=== PATIENT | male | born 1940 | race Caucasian/White ===

== ENCOUNTER 2016-04-29 10:39 | Inpatient (IN) | payer MEDICARE, BC ==
[~2016-04-29] VITALS: Ht 177.8 cm; Wt 84.5 kg
[~2016-04-29 10:39] MED LIST: ABILIFY5 MG PO; ANTABUSE250 MG PO; ASPI-COR81 M1 PO; ASPIRIN E.C. 8181 MG PO; Antabuse; Blood pressure med; CLONAZEPAM2 MG PO; COUMADIN2.5 MG PO; COUMADIN5 MG PO; DILTIAZEM; FLOMAX 0.40.4 MG/CAP PO; FLOMAX0.4 MG PO; HCTZ; KLONOPIN 0.5MG0.5 MG PO; MIRAPEX1 MG PO; MULTIPLE VITAMI1 CAP PO; NORVASC 5MG5 MG/TAB PO; PAROXETINE40 MG PO; POTASSIUM CH2 MEQ/ML PO; PRAVACHOL80 MG PO; PRINIVIL20 MG PO; ZESTRIL40 MG PO; ZOLPIDEM10 MG PO; [UNRECOGNIZED DRUG - OTHER]; [UNRECOGNIZED DRUG - OTHER]; [UNRECOGNIZED DRUG - OTHER] PO; cholesterol med
[2016-05-25] VITALS (10 sets, daily range): BP systolic 132–157; BP diastolic 45–78; PULSE 47–83; TEMP 97.5–98.5
[2016-05-25 07:40] LABS: HEMATOCRIT 44.3 % (42.0-52.0); HEMOGLOBIN 14.7 g/dl (13.5-18.0)
[2016-05-25 07:54] LABS: CALCIUM 9.5 mg/dL (8.4-10.2); CREATININE, serum 1.01 mg/dL (0.66-1.25); POTASSIUM 4.2 mmol/L (3.4-5.0)
[2016-05-25] MEDS ORDERED: FLOMAX 0.40.4 MG/CAP PO (07:56)
[2016-05-25] MEDS ORDERED: MYRBETR50MG PO (07:58)
[2016-05-25] MEDS ORDERED: MIRAPEX 1MG PO (07:58)
[2016-05-25] MEDS ORDERED: PAXIL40 MG PO (07:59)
[2016-05-26 00:39] VITALS: BP 133/64; PULSE 80; TEMP 97.2
[2016-05-26 05:09] VITALS: BP 136/54; PULSE 74; TEMP 98.6
[2016-05-26 07:38] LABS: HEMATOCRIT 35.7 % (42.0-52.0); HEMOGLOBIN 11.9 g/dl (13.5-18.0)
[2016-05-26 08:01] VITALS: BP 151/58; PULSE 66; TEMP 99.3
[2016-05-26 11:38] VITALS: BP 140/51; PULSE 63; TEMP 100
[2016-05-26 15:31] VITALS: BP 161/65; PULSE 75; TEMP 98.4
[2016-05-26 20:26] VITALS: BP 150/64; PULSE 83; TEMP 98.5
[2016-05-27 00:24] VITALS: BP 159/56; PULSE 80; TEMP 98
[2016-05-27 03:59] VITALS: BP 168/70; PULSE 67; TEMP 98.2
[2016-05-27 07:40] VITALS: BP 132/54; PULSE 71; TEMP 98.2
[2016-05-27 08:29] LABS: HEMATOCRIT 32.9 % (42.0-52.0)
[2016-05-27 12:12] VITALS: BP 107/49; PULSE 62; TEMP 98.3
[2016-05-27 15:33] VITALS: BP 135/63; PULSE 68; TEMP 98.9
[2016-05-27 19:47] VITALS: BP 158/61; PULSE 82; TEMP 99.1
[2016-05-28 01:08] VITALS: BP 123/63; PULSE 77; TEMP 98.6
[2016-05-28 04:22] VITALS: BP 112/39; BP 140/57; PULSE 56; PULSE 65; TEMP 98.5
[2016-05-28 07:37] VITALS: BP 113/54; PULSE 70; TEMP 98.3
[2016-05-28 07:40] VITALS: BP 112/61; PULSE 72; TEMP 98.9
[2016-05-28] MEDS ORDERED: NORCO 325 MG-7.1 TAB PO (07:50)
[2016-05-28] MEDS ORDERED: XARELTO10 MG PO (07:50)
[2016-05-28] MEDS ORDERED: ROXICODONE 55 MG/TAB PO (07:52)
[2016-05-28] MEDS ORDERED: SENOKOT8.6 MG PO (07:54)
== END 2016-05-28 10:11 | disposition home or self-care (01) | DRG 470 ==
LOC: JCC 05-25 07:00
PROVIDERS: Nurse Anesthetist, Certified Registered; Orthopaedic Surgery
PROC: 0SRB0JA Replacement of Left Hip Joint with Synthetic Substitute, Uncemented, Open Approach (ICD-10-PCS; principal; 2016-05-25 10:45)
DX: M16.12 Unilateral primary osteoarthritis, left hip (principal); I10 Essential (primary) hypertension; M06.9 Rheumatoid arthritis, unspecified; F17.210 Nicotine dependence, cigarettes, uncomplicated
CPT/HCPCS: A9284; C1776; J0690; J1650; J2250; J2274; J2704

== ENCOUNTER → 2016-05-20 | Outpatient (CLI) | payer MEDICARE, BC ==
[~2016-05-20] MED LIST changes: +MIRAPEX 1MG PO; +MYRBETR50MG PO; +NORCO 325 MG-7.1 TAB PO; +PAXIL40 MG PO; +ROXICODONE 55 MG/TAB PO; +SENOKOT8.6 MG PO; +XARELTO10 MG PO
== END ==
LOC: COL.LAB 11:33
DX: Z01.812 Encounter for preprocedural laboratory examination (principal); M25.852 Other specified joint disorders, left hip

== ENCOUNTER → 2016-12-14 | Outpatient (CLI) | payer MEDICARE, BC | LOC: BHSO 10:20 | DX: F41.1 Generalized anxiety disorder (principal) ==

== ENCOUNTER → 2017-01-26 | Outpatient (CLI) | payer MEDICARE, BC | LOC: BHSO 13:43 | DX: F33.1 Major depressive disorder, recurrent, moderate (principal) ==

== ENCOUNTER → 2017-05-03 | Outpatient (CLI) | payer MEDICARE, BC | LOC: BHSO 10:18 | DX: F33.1 Major depressive disorder, recurrent, moderate (principal) | CPT/HCPCS: G0463 ==

== ENCOUNTER 2017-08-12 17:31 | Observation (INO) | payer MEDICARE, BC ==
[~2017-08-12] VITALS: Ht 172.7 cm; Wt 88.4 kg
[2017-08-12 18:16] LABS: BASO % 0.5 % (0.0-2.0); EOS # 0.3 (0.0-0.7); GRAN # 5.4 (1.4-6.5); GRAN % 65.9 % (42.2-75.2); HEMATOCRIT 39.3 % (42.0-52.0); HEMOGLOBIN 13.2 g/dl (13.5-18.0); LYMPH # 1.9 (1.2-3.4); LYMPH % 22.9 % (20.0-51.0); MEAN CELL VOLUME 96 fl (80.0-100.0); MEAN CORPUSCULAR HEMOGLOBIN 32 pg (27.0-31.0); MEAN CORPUSCULAR HGB CONC 34 g/dl (33.0-37.0); MEAN PLATELET VOLUME 9.1 fl (7.4-10.4); MONO # 0.6 (0.1-0.6); MONO % 7.3 % (1.7-9.3); PLATELET COUNT 207 K/mm3 (130-400); RED BLOOD COUNT 4.08 M/mm3 (4.20-5.60); REDCELL DISTRIBUTION WIDTH-CV 12.9 % (11.5-14.5)
[2017-08-12 18:28] LABS: ALANINE AMINOTRANSFERASE 30 U/L (21-72); ALBUMIN 3.7 gm/dL (3.5-5.0); ALKALINE PHOSPHATASE 64 U/L (50-136); ANION GAP 13 mmol/L (7-16); AST,SGOT 25 U/L (15-37); BILIRUBIN,TOTAL 0.3 mg/dL (0.0-1.0); BLOOD UREA NITROGEN 22 mg/dL (9-20); CARBON DIOXIDE 23 mmol/L (22-30); CHLORIDE 108 mmol/L (98-107); CREATININE, serum 1.19 mg/dL (0.66-1.25); GLUCOSE 102 mg/dL (74-106); POTASSIUM 4.1 mmol/L (3.4-5.0); SODIUM 143 mmol/L (137-145); TOTAL PROTEIN 6.9 gm/dL (6.4-8.2)
[2017-08-12 18:30] LABS: C-REACTIVE PROTEIN < 0.5 mg/dL (0.0-0.9)
[2017-08-12 18:38] LABS: TROPONIN-I < 0.012 ng/mL (0.000-0.034)
[2017-08-12] MEDS ORDERED: LAMICTAL CD5 MG PO (19:14)
[2017-08-12] MEDS ORDERED: LEXAPRO20 MG PO (19:14)
[2017-08-12 21:12] VITALS: BP 174/77; PULSE 53; TEMP 98.2
[2017-08-12 23:53] VITALS: BP 144/72; PULSE 60; TEMP 98
[2017-08-13 03:58] VITALS: BP 155/69; PULSE 52; TEMP 97.8
[2017-08-13 07:11] LABS: BASO % 0.5 % (0.0-2.0); EOS # 0.4 (0.0-0.7); GRAN # 4.3 (1.4-6.5); GRAN % 58.5 % (42.2-75.2); HEMATOCRIT 40.3 % (42.0-52.0); HEMOGLOBIN 13.5 g/dl (13.5-18.0); LYMPH # 1.9 (1.2-3.4); MEAN CELL VOLUME 99 fl (80.0-100.0); MEAN CORPUSCULAR HEMOGLOBIN 33 pg (27.0-31.0); MEAN CORPUSCULAR HGB CONC 34 g/dl (33.0-37.0); MEAN PLATELET VOLUME 9.7 fl (7.4-10.4); MONO # 0.6 (0.1-0.6); MONO % 8.6 % (1.7-9.3); PLATELET COUNT 223 K/mm3 (130-400); RED BLOOD COUNT 4.09 M/mm3 (4.20-5.60)
[2017-08-13 07:32] LABS: ANION GAP 12 mmol/L (7-16); BLOOD UREA NITROGEN 21 mg/dL (9-20); CALCIUM 8.9 mg/dL (8.4-10.2); CARBON DIOXIDE 26 mmol/L (22-30); CHLORIDE 106 mmol/L (98-107); CREATININE, serum 1.15 mg/dL (0.66-1.25); GLUCOSE 79 mg/dL (74-106); POTASSIUM 4.2 mmol/L (3.4-5.0); SODIUM 144 mmol/L (137-145)
[2017-08-13 07:37] LABS: TROPONIN-I < 0.012 ng/mL (0.000-0.034)
[2017-08-13 08:47] VITALS: BP 150/78; PULSE 58; PULSE 85; TEMP 98.5
[2017-08-13 11:16] VITALS: BP 156/74; PULSE 50; TEMP 98.3
[2017-08-13] MEDS ORDERED: ELIQUIS 5MG PO ×3 (11:43→15:38)
[2017-08-16 11:04] LABS: LUPUS ANTICOAGULANT PT 11.5 sec (())
[2017-08-17 08:59] LABS: ANTI-THROMBIN III 111 % (72-128)
[2017-08-17 09:03] LABS: PROTEIN C ACTIVITY 108 % (70-150)
[2017-08-17 10:16] LABS: FACTOR II ACTIVITY 119 % (72-140); FACTOR V 121 % (50-150)
== END 2017-08-13 15:20 | disposition home or self-care (01) ==
LOC: COL.ER 17:31 → MEDICAL 19:29
PROVIDERS: Emergency Medicine; Nurse Practitioner Family
DX: R06.2 Wheezing (principal); I10 Essential (primary) hypertension; I08.3 Combined rheumatic disorders of mitral, aortic and tricuspid valves; E78.5 Hyperlipidemia, unspecified; G47.33 Obstructive sleep apnea (adult) (pediatric); N40.0 Benign prostatic hyperplasia without lower urinary tract symptoms; G25.81 Restless legs syndrome; F32.9 Major depressive disorder, single episode, unspecified; R91.1 Solitary pulmonary nodule; I73.9 Peripheral vascular disease, unspecified; Z79.01 Long term (current) use of anticoagulants; Z79.82 Long term (current) use of aspirin; Z96.652 Presence of left artificial knee joint; Z87.891 Personal history of nicotine dependence; Z86.711 Personal history of pulmonary embolism; Z82.3 Family history of stroke; Z82.49 Family history of ischemic heart disease and other diseases of the circulatory system
CPT/HCPCS: G0103; G0378; J1650; Q9967

== ENCOUNTER → 2017-11-01 | Outpatient (CLI) | payer MEDICARE, BC ==
[~2017-11-01] MED LIST changes: +ELIQUIS 5MG PO; +LAMICTAL CD5 MG PO; +LEXAPRO20 MG PO
== END ==
LOC: BHSO 13:01
DX: F33.41 Major depressive disorder, recurrent, in partial remission (principal)
CPT/HCPCS: G0463

== ENCOUNTER → 2018-01-07 | Day surgery (SDC) | payer MEDICARE, BC ==
[~2018-01-07] VITALS: Ht 175.3 cm; Wt 89.7 kg
[~2018-01-07] MED LIST changes: +LAMICTAL 100MG100 MG PO; -LAMICTAL CD5 MG PO; +NEURONTIN600 MG/TAB PO
[2018-01-07 09:38] VITALS: BP 155/76; PULSE 59; TEMP 97
[2018-01-07 11:10] VITALS: BP 136/68; PULSE 51; TEMP 97.8
[2018-01-07 11:25] VITALS: BP 133/73; PULSE 52
[2018-01-07 11:40] VITALS: BP 147/73; PULSE 47
== END ==
LOC: SDCO 08:37
DX: K57.30 Diverticulosis of large intestine without perforation or abscess without bleeding (principal); R19.7 Diarrhea, unspecified; K21.0 Gastro-esophageal reflux disease with esophagitis; K22.70 Barrett's esophagus without dysplasia; R14.3 Flatulence; Z79.82 Long term (current) use of aspirin; Z79.01 Long term (current) use of anticoagulants; Z86.718 Personal history of other venous thrombosis and embolism; Z86.711 Personal history of pulmonary embolism; Z87.891 Personal history of nicotine dependence
CPT/HCPCS: J2250; J3010; J7030

== ENCOUNTER → 2018-05-04 | Outpatient (CLI) | payer MEDICARE, BC | LOC: BHSO 13:04 | DX: F41.1 Generalized anxiety disorder (principal) | CPT/HCPCS: G0463 ==

== ENCOUNTER → 2018-10-25 | Outpatient (CLI) | payer MEDICARE, BC | LOC: BHSO 14:00 | DX: F33.42 Major depressive disorder, recurrent, in full remission (principal) | CPT/HCPCS: G0463 ==

== ENCOUNTER → 2018-11-07 | Outpatient (CLI) | payer MEDICARE, BC | LOC: COL.RAD 12:22 | DX: R91.1 Solitary pulmonary nodule (principal) | CPT/HCPCS: Q9967 ==

== ENCOUNTER 2018-12-22 15:10 | Emergency (ER) | payer MEDICARE, BC ==
[~2018-12-22] VITALS: Ht 172.7 cm; Wt 90.9 kg
[2018-12-22 15:11] VITALS: TEMP 98
[2018-12-22 15:27] LABS: BASO % 0.4 % (0.0-2.0); EOS # 0.1 (0.0-0.7); EOS % 1.4 % (0-4.0); GRAN # 5.5 (1.4-6.5); GRAN % 72.6 % (42.2-75.2); HEMATOCRIT 43.5 % (42.0-52.0); HEMOGLOBIN 14.5 g/dl (13.5-18.0); LYMPH # 1.4 (1.2-3.4); LYMPH % 18.5 % (20.0-51.0); MEAN CELL VOLUME 98 fl (80.0-100.0); MEAN CORPUSCULAR HEMOGLOBIN 33 pg (27.0-31.0); MEAN CORPUSCULAR HGB CONC 33 g/dl (33.0-37.0); MEAN PLATELET VOLUME 9.4 fl (7.4-10.4); MONO # 0.5 (0.1-0.6); MONO % 6.8 % (1.7-9.3); PLATELET COUNT 220 K/mm3 (130-400); RED BLOOD COUNT 4.44 M/mm3 (4.20-5.60); REDCELL DISTRIBUTION WIDTH-CV 13.2 % (11.5-14.5)
[2018-12-22 15:36] LABS: INR 1.1 (0.8-3.0); PROTHROMBIN TIME 12.4 SECONDS (9.7-12.8)
[2018-12-22 15:50] LABS: ALBUMIN 4.1 gm/dL (3.5-5.0); BILIRUBIN,TOTAL 0.6 mg/dL (0.0-1.0); CALCIUM 9.2 mg/dL (8.4-10.2); CREATININE, serum 1.15 (0.66-1.25); POTASSIUM 3.6 mmol/L (3.4-5.0); TOTAL PROTEIN 7.1 gm/dL (6.4-8.2)
[2018-12-22 20:17] VITALS: BP 166/80; PULSE 57
== END 2018-12-22 20:30 | disposition short-term general hospital (02) ==
LOC: COL.ER 15:10
PROVIDERS: Family Medicine
DX: I62.9 Nontraumatic intracranial hemorrhage, unspecified (principal); I10 Essential (primary) hypertension; E78.5 Hyperlipidemia, unspecified; N40.0 Benign prostatic hyperplasia without lower urinary tract symptoms; Z86.711 Personal history of pulmonary embolism
CPT/HCPCS: J2405

== ENCOUNTER → 2018-12-26 | Outpatient (CLI) | payer MEDICARE, BC ==
[2018-12-26 22:05] LABS: COLLECTION METHOD CATHETER
[2018-12-26 22:20] LABS: MUCOUS Present /lpf; PH 5 (5-8); SQUAMOUS EPITHELIAL None Seen /hpf; URINE APPEARANCE Clear; URINE BACTERIA None Seen /hpf; URINE BILIRUBIN Negative (NEGATIVE); URINE BLOOD 2+ (NEGATIVE); URINE COLOR Yellow; URINE GLUCOSE Negative (NEGATIVE); URINE KETONE 1+ (NEGATIVE); URINE LEUKOCYTE ESTERASE Negative (NEGATIVE); URINE NITRATE Negative (NEGATIVE); URINE PROTEIN(semi-quant) 1+ (NEGATIVE); URINE UROBILINOGEN Negative (NEGATIVE); URINE WBC 0-2 /hpf
== END ==
LOC: ZCOL.LAB 21:55
PROVIDERS: Internal Medicine
DX: R30.0 Dysuria (principal)

== ENCOUNTER 2019-01-09 10:23 | Inpatient (IN) | payer MEDICARE, BC ==
[~2019-01-09] VITALS: Ht 175.3 cm; Wt 87.8 kg
[~2019-01-09 10:23] MED LIST changes: -ASPIRIN 81M81 MG/TA2 PO; -DEBROX OT; -DULCOLAX S10 MG/SUPP RC; -IMODIUM 2MG CAPS2 MG PO; -LIPITOR 80MG80 MG PO; -LOMOTIL 0.025 M1 TAB PO; -MELATONIN5 M1 SL; -MILK OF MA400 MG/52 PO; -MYLANTA 150 ML150 M1 PO; -SINEMET 25/101 UDTAB PO; -TYLENOL 325MG325 MG PO; -TYLENOL SU650 MG/SUP RC; -[UNRECOGNIZED DRUG - OTHER] NS
[2019-01-09 10:33] VITALS: BP 116/64; PULSE 62; TEMP 98.1
--- NOTE | 2019-01-09 11:22 | NUR ---
Report from Ree nurse at [facility], pt arrived via wheelchair with sling to VI, at bedside, verified NKA, Full Code, and [facility]. Pt drowsy, closes eyes between questions. WAREHOUSE PROCESSOR took initial assessment, gave nurse pt's own phenylephrine HCl nasal spray. Pt [id number] lift transfer with 2 assist from wheelchair to shower chair.
[2019-01-09] MEDS ORDERED: TYLENOL SU650 MG/SUP RC (13:33)
[2019-01-09] MEDS ORDERED: ASPIRIN 81M81 MG/TA2 PO (13:34)
[2019-01-09] MEDS ORDERED: LIPITOR 80MG80 MG PO (13:35)
[2019-01-09] MEDS ORDERED: DULCOLAX S10 MG/SUPP RC (13:36)
[2019-01-09] MEDS ORDERED: DEBROX OT (13:38)
[2019-01-09] MEDS ORDERED: IMODIUM 2MG CAPS2 MG PO (13:44)
[2019-01-09] MEDS ORDERED: LOMOTIL 0.025 M1 TAB PO (14:30)
[2019-01-09] MEDS ORDERED: MELATONIN5 M1 SL (14:31)
[2019-01-09] MEDS ORDERED: MILK OF MA400 MG/52 PO (14:32)
[2019-01-09] MEDS ORDERED: MYLANTA 150 ML150 M1 PO (14:33)
[2019-01-09] MEDS ORDERED: [UNRECOGNIZED DRUG - OTHER] NS (14:45)
[2019-01-09] MEDS ORDERED: SINEMET 25/101 UDTAB PO (14:47)
[2019-01-09] MEDS ORDERED: TYLENOL 325MG325 MG PO (14:48)
[2019-01-09] MEDS ORDERED: LAMICTAL 100MG100 MG PO (15:02)
--- NOTE | 2019-01-09 18:04 | NUR ---
Left voicemail for Dr. Lorenzo that pt's lab results are displaying in computer now. WBC 13.2
[2019-01-09 18:19] VITALS: BP 166/71; PULSE 64; TEMP 98.1
--- NOTE | 2019-01-09 20:05 | NUR ---
Report to RAVEN Sylvester and that 5 page admission assessment and UA still need done.
--- NOTE | 2019-01-09 21:30 | NUR ---
Patient resting in bed and incontinent large amount of urine through clothing. Assisted to change and margot-care done. New attends applied. See admission assessment. Patient alert and oriented x 4 at this time and HS meds all reviewed and given taken 3 at a time. Declines HS care and snack. Attempts to void in urinal/obtain UA but unable to void at this time. BLE floated on pillow and SCD's on. Denies pain.
--- NOTE | 2019-01-10 02:00 | NUR ---
Patient attempts to use urinal after placed by staff several times but spills and attends changed. Denies pain. Repositioned up in bed.
[2019-01-10 03:42] VITALS: BP 157/76; PULSE 56; TEMP 98.7
--- NOTE | 2019-01-10 04:45 | NUR ---
Patient urinated in urinal after margot-care done. UA sent to lab. Incontinent large amount loose brown bm through pad and nurse changed/repositioned up in bed.
[2019-01-10 05:02] LABS: COLLECTION METHOD CLEAN CATCH
[2019-01-10 05:07] LABS: PH 6 (5-8); SQUAMOUS EPITHELIAL None Seen /hpf; URINE APPEARANCE Clear; URINE BACTERIA None Seen /hpf; URINE BILIRUBIN Negative (NEGATIVE); URINE BLOOD Negative (NEGATIVE); URINE COLOR Yellow; URINE GLUCOSE Negative (NEGATIVE); URINE KETONE Negative (NEGATIVE); URINE LEUKOCYTE ESTERASE Negative (NEGATIVE); URINE NITRATE Negative (NEGATIVE); URINE PROTEIN(semi-quant) Negative (NEGATIVE); URINE RBC 0-2 /hpf; URINE UROBILINOGEN Negative (NEGATIVE)
--- NOTE | 2019-01-10 06:26 | NUR ---
Assisted up to recliner via lift and 2 assist. Patient just dozed off and on through the night.
--- NOTE | 2019-01-10 08:24 | NUR ---
Patient resting in recliner at this time, call light in reach and chair alarm on. Patient has yellow gown on, slip proof socks on and tolerated breakfast, but did not like his meal today.
--- NOTE | 2019-01-10 11:30 | NUR ---
SW met with the patient to complete assessment on Rehab. Pt is alert & oriented. He is able to verbally communicate his needs & wants to others but is some times difficult to understand due to impaired speech. Pt lives w/ his , who he reports is in good health. They live in independent living at [facility]. Their home is 1 story home w/ no steps. They have 2 bathrooms but the one he uses has a walk-in shower w/ door, grab bars, & hand held shower head. The toilet is stand height. Pt reports walking w/o a device & was able to do his own ADL's. He also could help w/ the cooking, housekeeping, laundry, shopping, drove, medication management, & finance management. Pt also was delivering meals on wheels. Pt reports having r/walker & s/cane. Pt does not receive any services. They have a cat, which normally cares for. Pt's PCP is Dr. Gonzalez and he receives his medications at [facility], & reports no difficulties obtaining his meds. The pt reports having advanced directives w/ his , Yudelka, designated as DPOA. Will request copy from [facility]. Pt hopes to be able to return to home w/ his . Pt's goal is to get his right leg & arm working & regain his speech. Will continue to work w/ pt & for support during stay & on d/c planning.
[2019-01-10 15:40] VITALS: BP 151/65; PULSE 56; TEMP 98.4
--- NOTE | 2019-01-10 18:10 | NUR ---
Patient used call light and when this nurse arrived patient had a large incontinent stool outside of clothing and on his recliner. This nurse and FARZAD/Romie cleaned patient up, used [id number] to stand patient up and changed his clothing. He is currently resting in his recliner waiting for his supper to arrive. Will continue to monitor.
--- NOTE | 2019-01-10 18:50 | NUR ---
Patient assisted via lift to bed. Denies pain. BLE elevated on pillow. SCD's on.
--- NOTE | 2019-01-10 20:30 | NUR ---
Hs meds all reviewed and given. Patient repositioned up in bed. Declines CPAP at this time.
--- NOTE | 2019-01-10 23:00 | NUR ---
Rests with eyes closed. Respirations with ease.
--- NOTE | 2019-01-11 00:20 | NUR ---
Awake and incontinent of urine. Changed and barrier cream applied/repositioned up in bed. With encouragement, patient pulls self up in bed with LUE and headboard/pushing with LLE.
[2019-01-11 04:58] VITALS: BP 176/71; PULSE 61; TEMP 99
--- NOTE | 2019-01-11 05:00 | NUR ---
Awakened for repositioning/incontinent care done. Denies needs. Returns to resting with eyes closed.
--- NOTE | 2019-01-11 08:29 | NUR ---
Patient was dependent with all toileting cares and transfer this morning. He was incontinent of urine and stool. Stool was loose and was given prn imodium. Patient was a set up for brushing teeth. He placed toothpaste on tooth brush, brushed teeth and able to rinse mouth himself.
--- NOTE | 2019-01-11 17:11 | NUR ---
Reviewed Team Conference note w/ pt. He stated he understood & agreed w/ his current functional level. Informed him that the team did not set a d/c date but will re-evaluate next Wednesday, which he was fine w/. Pt had no questions/concerns at this time.
[2019-01-11 17:55] VITALS: BP 138/66; PULSE 56; TEMP 98.8
--- NOTE | 2019-01-11 20:54 | NUR ---
Patient did not have any more episodes of loose stools this shift. He denied pain. He still has some redness to his scrotom area and barrier ointment was applied. Patient attended all therapies this shift. He ate well this shift. This afternoon his Yudelka stopped by and was visiting when she approached this nurse stating that patient had a visitor at 1 PM today that had said that he was not going to get any better. He then said that later on another person came in and said that he was going to get better. said that patient was very upset and wanted to know who that person was that upset him. This nurse was assisting another patient at that time and said that she would visit with him about this when she is able to. This nurse later was then approached by patient's Yudelka with her reporting that patient changed his story and said that it wasn't that he wasn't going to get better, but rather someone visiting with him about therapies. She said that there was no concern after all. This nurse voiced understanding. Patient is alert to person, date of , year, but having difficulty with saying where he is or explaining himself due to dysphagia. Will continue to monitor.
--- NOTE | 2019-01-11 21:00 | NUR ---
PT RESTING IN BED. DENIES PAIN. RT SIDE FLACCID. ALITTLE CONFUSED AT TIMES. DENIES WANTS TV ON THEN PICKS UP REMOTE AND LOOKING FOR ON BUTTON. SOME APHASIA AND SL DYSARTHIA NOTED. INCONTINENT OF BLADDER. WEARING DIAPERS. SEE SHIFT ASSESSMENT. CALL LIGHT IN REACH. BED ALARM SET.
--- NOTE | 2019-01-12 05:27 | NUR ---
PT RESTING NOW. HAS HAD INTERMITTENT SLEEP THROUGH THE NIGHT. DENIES PAIN. WEARING DIAPERS FOR URINARY INCONTINENCE. CALL LIGHT IN REACH. BED ALARM SET.
--- NOTE | 2019-01-12 05:29 | NUR ---
PT HAS REFUSED CPAP THROUGH THE NIGHT.
[2019-01-12 05:52] VITALS: BP 178/81; PULSE 57; TEMP 98.3
--- NOTE | 2019-01-12 11:16 | NUR ---
Report from RAVEN Kaur. Pt was transferred to chair from [facility] [place] lift by ALEJANDRO, pt denies numbness/tingling or dizziness. Alert, takes pills a few at a time, right sided weakness, assisted with cutting up breakfast burrito. Pt in therapies. Denies pain.
--- NOTE | 2019-01-12 14:16 | NUR ---
Admission QIM scores were reviewed by the team. Code of 5 chosen for eating was determined by team discussion to be the most usual performance for this patient during the assessment period. Code of 3 chosen for oral hygiene was determined by team discussion to be the most usual performance for this patient during the assessment period.---Pastora Granado,
[2019-01-12 14:58] VITALS: BP 107/76; PULSE 89; TEMP 98.3
[2019-01-12 16:06] VITALS: BP 141/61; PULSE 57; TEMP 97.4
--- NOTE | 2019-01-12 16:33 | NUR ---
Pt's at bedside, she filled out menus for tomorrow. Pt denies pain, requests to transfer from bed to chair for supper.
--- NOTE | 2019-01-12 19:38 | NUR ---
Report to RAVEN Kaur.
--- NOTE | 2019-01-12 21:30 | NUR ---
PT UPSET. WANTS TO GO TO BED. SITTING UP IN W/C. USED SIT TO STAND LIFT WITH TWO STAFF TO TRANSFER TO BED. PT RELATED HAD CALLED EARLIER BUT NO ONE RESPONDED. HS CARES COMPLETED. DENIES NEED FOR PAIN MED. RT SIDE HEMIPARESIS. NOTED UPON ASSESSMENT AFTER PT INTO BED. RT SIDE ABD DISTENDED BUT SOFT. NO PAIN UPON PALPATION. BS X 4 QUAD. PT ATE ICE CREAM AND THEN BRUSHED TEETH. CALL LIGHT IN REACH. BED ALARM SET.
[2019-01-13 03:56] VITALS: BP 157/75; PULSE 56; TEMP 97.8
--- NOTE | 2019-01-13 08:28 | NUR ---
Report from RAVEN Kaur. Pt to chair in gown and gripper socks for breakfast, set up for oral cares, assisted with applying hearing aid to left side, pt did right. Glasses in place, took pills a few at a time with water. RUE on pillow, call lt in reach.
--- NOTE | 2019-01-13 11:52 | NUR ---
FARZAD Grubbs reports pt's margot area is WNL, desenex orders obtained per night nurse's report of redness to that area. Pt to chair for lunch, RUE on pillow, was napping and slightly confused when awakened, but took med with thin liquid. Glasses in place, yellow gripper socks on, call lt in reach.
[2019-01-13 16:13] VITALS: BP 125/74; PULSE 58; TEMP 97.6
--- NOTE | 2019-01-13 18:15 | NUR ---
Bed alarm on, RUE positioned on pillow, heels floated, SCDs, glasses, HAs in place, call lt in reach.
--- NOTE | 2019-01-13 19:38 | NUR ---
Report to RAVEN Zhao. Pt in bed with alarm on, call lt in reach, SCDs to BLE.
--- NOTE | 2019-01-14 02:41 | NUR ---
PATIENT DOING WELL TONIGHT. HAS HAD SEVERAL INCONTINENT VOIDS. AND WAS CLEANED AND REPOSITIONED AND TURNED. PATIENT DID REQUEST TO GET OUT OF BED FOR ONE VOID. USED SIT TO STAND WITH ASSISTANCE FROM SERVICES PROGRAM MANAGER AND GOT PATIENT INTO BATHROOM. PATIENT DID NOT HAVE A BM OR VOID. RETURNED TO BED VIA SIT TO STAND LIFT. PERICARE DONE. PATIENT REFUSED DESENEX POWDER, MINIMAL REDNESS NOTED. PATIENT DENIES PAIN. R ARM FLOATED ON PILLOW. SEE ASSESSMENT. NO FURTHER NEEDS AT THIS TIME.
[2019-01-14 04:28] VITALS: BP 157/64; PULSE 57; TEMP 98.2
--- NOTE | 2019-01-14 06:26 | NUR ---
BED ALARM WENT OFF. FOUND PATIENT ATTEMPTING TO GET OUT OF BED BY HIMSELF. PATIENT STATED 'HE NEEDED TO GO SEE MOM'. REORIENTED TO PLACE AND SITUATION. TRANSFERRED PATIENT TO CHAIR WITH X2 ASSIST AND SIT TO STAND LIFT. CHAIR ALARM ON. CALL LIGHT WITHIN REACH, DOOR OPEN.
--- NOTE | 2019-01-14 07:50 | NUR ---
Patient up in recliner resting. Alert and oriented to self. Attempted to reorient patient to place and time. X2 assist with sit to stand to restroom, had a large BM. Abrasion to knee is CDI. right sided weakness noted. Denies pain or further needs at this time.
--- NOTE | 2019-01-14 13:00 | NUR ---
PICKED UP PT FROM [facility] AT THIS TIME. PT HAS NOT HAD A [place] PAIN. SIT TO STAND IS USED TO TRANSFER PT. WEAKNESS TO RIGHT SIDE OF HIS BODY. PT VOIDS USING A URINAL, TOMASA YELLOW RUINE ABOUT 150 CC. URINE SAMPLE SENT TO LAB TODAY.
[2019-01-14 17:51] VITALS: BP 136/63; PULSE 58; TEMP 98.6
--- NOTE | 2019-01-15 01:39 | NUR ---
PATIENT DOING WELL TONIGHT. HAS BEEN SLIGHTLY CONFUSED BUT LESS THEN LAST NIGHT. HAS BEEN VOIDING IN URINAL, HAS NOT BEEN INCONTINENT. DENIES PAIN OR NEED FOR PAIN MEDICATIONS. NO FURTHER NEEDS AT THIS TIME WILL CONTINUE TO MONITOR.
[2019-01-15 03:51] VITALS: BP 160/62; PULSE 60; TEMP 98.2
--- NOTE | 2019-01-15 07:50 | NUR ---
Report from RAVEN Zhao. Pt sat up in bed for breakfast, alarm on, yellow gown/grippers/wristband in place. Set up for oral cares, VI iverson. Assist with inserting HAs. Glasses in place. Call lt in reach. Denies pain. Emptied urinal from tray.
--- NOTE | 2019-01-15 13:11 | NUR ---
Pt finished lunch in chair, RUE on pillow, visiting.
[2019-01-15 16:47] VITALS: BP 137/76; PULSE 57; TEMP 97.5
--- NOTE | 2019-01-15 19:08 | NUR ---
Pt ate supper in chair, returned to bed with lift, changed into yellow gown, grippers on, bed alarm on, call lt and urinal in reach, HAs in container- pt declined. RUE on pillow and folded pillow under RLE ankle as knee is not straightening well, pt says he is comfortable. Report to RAVEN Zhao.
--- NOTE | 2019-01-16 01:51 | NUR ---
PATIENT DOING WELL TONIGHT. DENIES PAIN. TOOK SCHEDULED MEDS WITHOUT ISSUE. WAS TRANSFERRED TO BATHROOM WITH SIT TO STAND TO ATTEMPT A BM. NO BM AT THIS TIME. 250 EMPTIED FROM URINAL. RETURNED TO BED. DRESSING TO R KNEE IS CDI. SEE ASSESSMENT. NO FURTHER NEEDS AT THIS TIME. WILL CONTINUE TO MONITOR.
[2019-01-16 03:45] VITALS: BP 150/82; PULSE 56; TEMP 98.2
--- NOTE | 2019-01-16 11:34 | NUR ---
Assessment completed, alert/oriented / he does have some disorientation in the mornings and evenings when he is drowsy, denies pain or discomfort, he was incontinent of large amount of stool this morning/ loose, will discuss getting an order for immodium as alfredo reports multiple loose stools over past couple of days, patient right arm and hand are contracted and RLE very weak, using sit to stand for transfers, ate good breakfast, he is using the urnial for voding, OT in room at this time with patient, we have him up in the recliner, denies other needs
--- NOTE | 2019-01-16 14:18 | NUR ---
Visited w/ pt. He stated he had a fairly good weekend but it was kind of bland because of not having much therapy or staff around. He did ask SW question about when he should be doing more w/ his leg & arm. Explained to him that it is hard to determine how he will progress w/ his stroke recovery as everyone is different. Pt stated he understood. Will continue to follow to provide support.
--- NOTE | 2019-01-16 21:15 | NUR ---
Pt. sitting up in chair at this time. Pt. is A&OX3, assessment complete. Pt. denies pain or other needs at this time. Call light within reach.
[2019-01-17 04:23] VITALS: BP 147/65; PULSE 64; TEMP 97.9
[2019-01-17 15:09] VITALS: BP 133/59; PULSE 59; TEMP 98.2
--- NOTE | 2019-01-17 16:42 | NUR ---
Patient resting in bed at this time, call light in reach and bed alarm is on. Denies pain this shift. came by today and cut patient's hair for him. Attended all therapies today. Was incontinent of urine this afternoon. He was total care with changing brief and dressing. Will continue to monitor.
--- NOTE | 2019-01-17 19:42 | NUR ---
Patient had multiple incontinent episodes this shift and staff cleaned and changed patient. He was a sit to stand with all transfers today. Denied pain this shift. Tolerated his diet well this shift. Denied questions at this time. Reported off to night nurse.
--- NOTE | 2019-01-17 20:30 | NUR ---
HS meds all reviewed and given. Urinal emptied and placed for the night to prevent incontinency. Has rash to buttucks and antifungal powder applied. Takes time to answer orientation questions but is oriented x 4. RLE elevated on pillow.
--- NOTE | 2019-01-18 01:32 | NUR ---
INCONTINENT LARGE LOOSE STOOL THROUGH PAD AND LINENS CHANGED. IMODIUM GIVEN AND STOOL SPECIMEN SENT TO LAB. DENIES PAIN OR NEEDS.
[2019-01-18 03:06] VITALS: BP 161/61; PULSE 58; TEMP 98.2
--- NOTE | 2019-01-18 03:47 | NUR ---
RESTS WITH EYES CLOSED. RESPIRATIONS WITH EASE.
--- NOTE | 2019-01-18 13:29 | NUR ---
Patient currently working with ST at this time. He is very tired and was given some sprite to help him wake up a bit for speech therapy. Dr. Maura ANDREWS'd patient's Zovirax today see DC orders. Patient's external catheter remains in place for patient and he is having good urine output. Wound vac continues to function well. Call placed to Medical Claims Analyst to get another canister for it. Patient was given a bed bath this morning, but will be getting a shower either tomorrow or Wednesday. Patient was a one assist with a walker with transfers this morning from bed to recliner. Given prn pain meds to help with generalized pain. Will continue to monitor.
--- NOTE | 2019-01-18 15:13 | NUR ---
Reviewed team conference note w/ pt & his , Demi. They stated they understood his current level of functioning. Informed them the team is recommending another week & re-evaluate next Wednesday, which they were fine with. Explained the team would like to schedule a Family Conference next 01/25/19, but will follow up next week on a time. They had no questions/concerns at this time.
[2019-01-18 15:54] VITALS: BP 128/63; PULSE 79; TEMP 97.5
--- NOTE | 2019-01-18 17:50 | NUR ---
Patient was a sit to stand with transferring to his recliner and back to his bed today. He had one episode of incontinence outside of his brief when standing in the sit to stand. Patient was aware at the specific moment that he needed to urinate, but was not able to give staff enough notice to prevent it from going on his socks and shoes. Patient was cleaned up throughly and shoes cleaned as well. Patient notified staff at least three times today when he thought he needed to urinate. Patient had a shower this afternoon and bandage to his right knee was removed. Following the shower the right knee abrasions seemed very red and a little angry. This nurse received orders from Dr. Lorenzo for a wound consult. Received orders from wound care - see additional nursing orders for dressing changes to right knee abrasions. The lateral abrasion was 3 1/2 cm x 2 cm oblong shape the inner bed was 2 cm x 1 1/4 cm oblong shape. The medial abrasion was 1 1/2 cm x 2 cm oblong shape. Both areas were covered with Aquacel AG and secured with Alleyvn bandage per wound care orders. Dressing is to be changed every 7 days or as needed if showering or drainage observed. Will continue to monitor.
--- NOTE | 2019-01-18 20:15 | NUR ---
HS meds all reviewed and given. Denies pain. Rests in bed and continent at this time. Lights turned out. BLE and RUE elevated on pillow.
--- NOTE | 2019-01-18 23:00 | NUR ---
Incontinent of urine through attends and max assist to change. Able to roll to right side without difficulty but max assist to roll to left. Head of bed lowered and patient able to pull self up in bed with use of head board.
--- NOTE | 2019-01-19 02:00 | NUR ---
Patient has been resting with eyes closed. Awakened and incontinent care done. Repositioned.
[2019-01-19 04:55] VITALS: BP 139/68; PULSE 70; TEMP 98.3
--- NOTE | 2019-01-19 05:24 | NUR ---
PATIENT AWAKENED FOR MED. STATES "YES" TO SLEEPING WELL THIS NOC.
--- NOTE | 2019-01-19 08:00 | NUR ---
SEE SHIFT ASSESSMENT.
[2019-01-19 18:23] VITALS: BP 140/62; PULSE 60; TEMP 98.5
--- NOTE | 2019-01-19 19:00 | NUR ---
REPORT GIVEN TO RAVEN SHERIDAN.
--- NOTE | 2019-01-20 01:46 | NUR ---
PATIENT DOING WELL TONIGHT. TOOK SCHEDULED MEDS WITHOUT DIFFICULTY. R ARM AND LEG ELEVATED ON PILLOW. PATIENT VOIDING IN URINAL. R KNEE DRESSING CDI. REQUESTED MELATONIN AT BEDTIME. NO FURTHER NEEDS AT THIS TIME. WILL CONTINUE TO MONITOR.
[2019-01-20 04:29] VITALS: BP 4133/68; PULSE 56; TEMP 98
[2019-01-20 07:07] LABS: BASO # 0.1 (0.0-0.2); BASO % 0.6 % (0.0-2.0); EOS # 0.4 (0.0-0.7); EOS % 4.5 % (0-4.0); GRAN # 5.7 (1.4-6.5); HEMATOCRIT 40.1 % (42.0-52.0); HEMOGLOBIN 13.4 g/dl (13.5-18.0); LYMPH # 1.7 (1.2-3.4); LYMPH % 19.5 % (20.0-51.0); MEAN CELL VOLUME 96 fl (80.0-100.0); MEAN CORPUSCULAR HEMOGLOBIN 32 pg (27.0-31.0); MEAN CORPUSCULAR HGB CONC 33 g/dl (33.0-37.0); MEAN PLATELET VOLUME 9.4 fl (7.4-10.4); MONO # 0.7 (0.1-0.6); MONO % 7.8 % (1.7-9.3); PLATELET COUNT 291 K/mm3 (130-400); RED BLOOD COUNT 4.16 M/mm3 (4.20-5.60); REDCELL DISTRIBUTION WIDTH-CV 12.7 % (11.5-14.5)
[2019-01-20 07:18] LABS: CALCIUM 9.2 mg/dL (8.4-10.2); CREATININE, serum 1.11 (0.66-1.25)
[2019-01-20 08:09] VITALS: BP 139/66
--- NOTE | 2019-01-20 10:44 | NUR ---
Visited w/ pt. Inquired if he had any questions about the Team Conference from Wednesday. He stated he did not. He did not have any other questions/concerns at this time.
[2019-01-20 17:42] VITALS: BP 137/66; PULSE 64; TEMP 98.3
--- NOTE | 2019-01-20 21:00 | NUR ---
PT RESTING IN BED. INCONT LG LOOSE STOOL W/ VOID. DENIES ANY PAIN. RT ARM CONTRACTURED UP TO CHEST THEN RELAXED STATE. PILLOW UNDER RT ARM FOR SHOULDER SUPPORT. CALL LIGHT IN REACH. BED ALARM SET.
--- NOTE | 2019-01-21 02:54 | NUR ---
PT SLEEPING. CPAP ON.
[2019-01-21 04:42] VITALS: BP 153/71; PULSE 55; TEMP 98
[2019-01-21 15:20] VITALS: BP 126/62; PULSE 56; TEMP 97.6
--- NOTE | 2019-01-21 16:27 | NUR ---
Report from RAVEN Kaur. Today is pt's birthday, transferred out of bed with sit to stand lift, sponge bath given, assisted to dress prior to group therapy. Scrotum reddened, cleansed, dried, applied lotromin powder after each change. Pt sat in wheelchair for group and to recliner through lunch, returned to bed, total assist to clean after incont of urine, changed into gown. and others visited, brought birthday card and brownies. Pt watching ball game on tv/bedresting, denies pain. Takes pills whole a few at a time with thin liquids. Tayler regular diet, set up assist for eating and oral cares. Informed that pt's hearing aid batteries need replaced, she states she will bring new ones. Dressing to Rt knee intact. Knees have tone and stiffness.
--- NOTE | 2019-01-21 17:10 | NUR ---
Pt to chair for supper via lift.
[2019-01-22 04:52] VITALS: BP 154/63; PULSE 54; TEMP 98.2
--- NOTE | 2019-01-22 07:53 | NUR ---
Report from RAVEN Kaur. Pt called with urge to have a BM, two assist with lift to BSC, no results, assisted with dressing and margot cares, was incont of urine in depends. To chair with set up for meal. Pt had choking episode on eggs and strauss, stayed with pt until he recovered. Cued on safety. Resumed eating. Denied pain.
--- NOTE | 2019-01-22 15:48 | NUR ---
Pt bedrested after breakfast, to chair for lunch, had incont BM in depends, total lift and total assist to clean and change. Seat cushion in place to recliner. Requested to return to bed.
[2019-01-22 15:59] VITALS: BP 139/67; PULSE 52; TEMP 97.8
--- NOTE | 2019-01-22 16:04 | NUR ---
Removed dressing dated 01/18@1700 from rt knee. Minimal drainage. Lateral scab has granulated more, dry, came off gentle cleansing motion with margot foam on wipe. Curlew granulation wound bed to this and medial smaller wound. Applied Aquacel Ag gauze and new allevyn dressing, dated. Pt beckie well.
--- NOTE | 2019-01-22 18:37 | NUR ---
Pt called to return to bed, agreeable to attempt to toilet on BSC, transferred with lift.
--- NOTE | 2019-01-22 21:30 | NUR ---
Report received from RAVEN Cunningham. Patient resting in bed. Patient denies pain. Assessment complete. PM medications given. Lungs CTA. Bowels active. Patient to be turned Q2. Bed alarm on. Call light within reach.
--- NOTE | 2019-01-23 01:42 | NUR ---
Patient resting in bed. Patient incontinent of urine, brief was changed during repositioning. Denies pain. Bed alarm on. Call light within reach.
[2019-01-23 05:32] VITALS: BP 135/69; PULSE 53; TEMP 97.8
--- NOTE | 2019-01-23 05:43 | NUR ---
Patient had uneventful night. Patient up to use BSC. Did not have a BM. Was then put in the chair for the morning. Brief changed. Patient watching TV at this time. Call light within reach. Chair alarm on.
--- NOTE | 2019-01-23 07:01 | NUR ---
Report given to RAVEN Maher
--- NOTE | 2019-01-23 07:37 | NUR ---
Patient resting in recliner at this time, call light in reach and chair alarm is on. Patient reported sleeping well last night. Ate 50% of breakfast this morning. Will continue to monitor.
--- NOTE | 2019-01-23 09:55 | NUR ---
Patient had an episode of possible aspiration when eating eggs this weekend. Patient's lungs sound clear. When observing him eating and drinking this morning he did cough more when drinking from cups that did not have a straw. Each time he drank his coffee and juice without a straw he would cough. Once he was given a straw he did not seem to cough. He did chew his food many times before swallowing. Encouraged him to continue to tuck his chin when swallowing. He voiced understanding. Discussed the above with ST this morning. Will continue to monitor.
--- NOTE | 2019-01-23 10:57 | NUR ---
SW met with the patient to discuss the weekend care. The patient reports it was good but he is tired. Patient was falling asleep during our visit. SW will continue to follow.
--- NOTE | 2019-01-23 13:28 | NUR ---
Patient's alarm went off and patient was found slid down in his recliner with right arm off the recliner arm rest. Patient stated, I was trying to reach the call light that had fallen." This nurse moved his recliner over closer to his bed and made sure that he could reach the call light on the side of the bed as well as wrap the call light around the side of the bed rail and placed in his lap. Patient was able to demonstrate how to pull his call light back up off the floor without leaning over to the floor to try to pick it up. He also demonstrated that he was able to reach over to the side of the bed and could push that call light if needed as well. Patient voiced understanding. Will continue to monitor.
--- NOTE | 2019-01-23 13:32 | NUR ---
Patient was a two person assist using [id number] when transferring to the toilet. He was incontinent of urine. Staff cleaned him up, changed his brief and pants and repositioned him into his recliner. Patient tolerated well. Reporting no pain at this time.
--- NOTE | 2019-01-23 16:03 | NUR ---
Patient's stopped by and brought him a book and a stand for his book. Patient currently resting in recliner, call light in reach and chair alarm set, shoes on. His took his clothes home to be washed. Denies pain at this time.
[2019-01-23 16:51] VITALS: BP 116/51; PULSE 61; TEMP 98.7
--- NOTE | 2019-01-23 22:20 | NUR ---
Awakened for HS meds all reviewed and given. Denies pain. Continent at this time.
[2019-01-24 02:59] VITALS: BP 148/64; PULSE 58; TEMP 98.3
--- NOTE | 2019-01-24 06:24 | NUR ---
UP TO BSC TO ATTEMPT BM-NO SUCCESS. INCONTINENT OF URINE AND CHANGED. SIT TO STAND LIFT TO RECLINER. DENIES PAIN.
--- NOTE | 2019-01-24 09:00 | NUR ---
Patient's called to find out when the family meeting time was for tomorrow. This nurse called TY and Melissa and the family meeting time is 10:15 AM tomorrow and this was communicated to patient's . She voiced understanding. Patient had a incontinent bowel movement this morning and was on his bedding and down his pants. It took this nurse more then a half hour to assist patient with cleaning up stool from patient and off clothing. Patient tolerated the sit to stand well with the length of time it took to clean him up. Patient in pleasent mood this morning. Denies pain. Will continue to monitor.
--- NOTE | 2019-01-24 09:15 | NUR ---
Patient had an incontinent BM today and took two people to clean patient. Patient was a sit to stand with his transfers. Denies pain.
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
--- NOTE | 2019-01-24 15:17 | NUR ---
Patient visiting with and friend Stanley from [facility]. Patient is drinking his nutrition drink while sitting in his recliner with feet elevated, call light in reach and chair alarm on. Patient denies questions or pain at this time.
--- NOTE | 2019-01-24 17:28 | NUR ---
Patient eating supper at this time. Denies pain. Will continue to monitor.
[2019-01-24 17:35] VITALS: BP 124/55; PULSE 63; TEMP 98.4
--- NOTE | 2019-01-24 19:22 | NUR ---
Dr. Lorenzo is aware of patient having a bulging right abdomen/flank. No new orders at this time. Patient has active bowel sounds in all quadrants. No pain reported.
--- NOTE | 2019-01-24 20:30 | NUR ---
Patient awakened for HS meds. Reviewed and given. Denies pain. Continent. Returns to resting with eyes closed.
--- NOTE | 2019-01-25 02:13 | NUR ---
Patient rests with eyes closed. Respirations with ease.
[2019-01-25 03:42] VITALS: BP 157/61; PULSE 53; TEMP 98.1
--- NOTE | 2019-01-25 05:42 | NUR ---
PATIENT AWAKENED FOR MED. STATES YES TO SLEPT WELL LAST NIGHT.
--- NOTE | 2019-01-25 06:30 | NUR ---
SHIFT REPORTED RECEIVED FROM YIFAN CARBAJAL.
[2019-01-25 07:08] LABS: CALCIUM 8.9 mg/dL (8.4-10.2); CREATININE, serum 1.09 (0.66-1.25); POTASSIUM 3.9 mmol/L (3.4-5.0)
--- NOTE | 2019-01-25 09:00 | NUR ---
INCONTINENT OF STOOL WITH PATIENT REQUESTING TO EAT BREAKFAST MEAL PRIOR TO INCONTINENT CARE GIVEN.
--- NOTE | 2019-01-25 13:33 | NUR ---
dimension mill worker attended rehab team meeting and then met with patient and spouse for a patient/family meeting. Speech, physical, and occupational therapies were in attendance at the meetings. Staff advised of current status and progress in each are of therapy and that we are looking at a discharge on February 02, 2019. It is recommended that patient transfer to a skilled facility upon discharge and patient/spouse both agree with this plan. Worker provided the Medicare.gov fdc compare options and spouse chose 1. [facility] and 2. [facility]. Choice form signed and placed in the chart. Worker provided referrals to above facilities and will await screenings/acceptance.
--- NOTE | 2019-01-25 14:51 | NUR ---
NO HAND RAILROAD SIGNAL TECHNICIAN OBSERVED ON COMMAND TO RIGHT HAND WITH SOME CONTRACTURES TO LAST 3 FINGERS OF RIGHT HAND
--- NOTE | 2019-01-25 15:16 | NUR ---
[facility] accepts patient to skilled care upon discharge on 02/02/19. Worker contacted spouse and advised of the above information.
--- NOTE | 2019-01-25 15:49 | NUR ---
rack production worker met with patient and provided written team conference notes and advised that [facility] will accept to skilled care on 02/02/19.
[2019-01-25 16:08] VITALS: BP 117/60; PULSE 52; TEMP 97.5
--- NOTE | 2019-01-25 16:51 | NUR ---
RESTING IN BED WITH NO COMPLAINTS AT THIS TIME. NO CHANGES IN MEDS/ACTIVITY/DIET ORDERS CURRENTLY
--- NOTE | 2019-01-25 17:01 | NUR ---
PATIENT FREQUENTLY PUSHES NURSE CALL BUTTON IN ATTEMPT TO CHANGE TV CHANNELS, WELL CALLING LABOR&DELIVERY NURSES STATIONS, REPEATEDLY INSTRUCTING PATIENT REGULATORY MANAGER LIGHT/TV CONTROL BUTTONS WITH PATIENT VERBALIZING UNDERSTANDING.
--- NOTE | 2019-01-25 17:42 | NUR ---
WILL GIVE BEDSIDE REPORT TO NIGHT NURSE WHO WILL RESUME CARE
--- NOTE | 2019-01-25 20:00 | NUR ---
PT RESTING IN BED. INCONT OF URINE IN CLOTHING. CHANGED CLOTHING WITH MAX ASSIST. RT SIDE FLACCID. PT ABLE TO CARRY SURFACE CONVERSATION WELL. COMPLEX TOPICS HAS SOME DIFFICULTY. CALL LIGHT IN REACH. BED ALARM SET.
[2019-01-26 04:32] VITALS: BP 134/60; PULSE 57; TEMP 98.4
--- NOTE | 2019-01-26 06:30 | NUR ---
RECEIVED SHIFT REPORT FROM BINDER OPERATOR NURSE ANGELIC
[2019-01-26 16:16] VITALS: BP 118/60; PULSE 58; TEMP 98
--- NOTE | 2019-01-26 17:59 | NUR ---
Pt was incont of urine at beginning of shift. A&O, pleasantly cooperative, takes pills a few at a time with thin liquids, aspiration precautions in place. visited this afternoon. Pt to chair for meals. Total lift for transfers. R knee wound healed over with pink granulation tissue, showed , she is pleased. Pt denies pain.
--- NOTE | 2019-01-27 01:33 | NUR ---
PATIENT DOING WELL TONIGHT. WAS INCONTINENT OF URINE AND CLEANED BY SUPERVISOR TRAIN OPERATIONS. DENIES PAIN OR NEED FOR PAIN MEDICATION. TOOK SCHEDULED MEDS A FEW AT A TIME WITHOUT DIFFICULTY. SCABBING TO R KNEE OPEN TO AIR AND HEALING. DENIES FURTHER NEEDS. WILL CONTINUE TO MONITOR.
[2019-01-27 03:57] VITALS: BP 162/62; PULSE 63; TEMP 98.3
--- NOTE | 2019-01-27 09:22 | NUR ---
Report from RAVEN Zhao. Total assist in lift for stool. Found 1 cm opening to margot anal area, superficial, red, pt has incont of B/B, will f/u with hospitaliast for orders. Pt coughing while taking pills with RN in training, she is cueing him appropriately for aspiration precautions.
--- NOTE | 2019-01-27 09:55 | NUR ---
Initial visit; Patient thanked Manager Corporate Strategy for stopping by and wishing him well and offering God's blessings.
[2019-01-27 15:46] VITALS: BP 112/49; PULSE 58; TEMP 98.2
--- NOTE | 2019-01-27 15:50 | NUR ---
Pt does not like Enlives, but agreeable to a "chocolate shake" (made with dana ice cream and enlive)
--- NOTE | 2019-01-27 16:26 | NUR ---
OBSERVED NEW OBSERVED 1CM SKIN CRACK TO PERIANAL AREA NONE DRAINING, PATIENT CONTINUES WITH INCONTINENCE OF BOTH BOWEL AND BLADDER. DR [facility]ILLO[facility] INFORMED OF SKIN ASSESSMENT CHANGE, ORDERS GIVEN FOR MEDICATED CREAM AND PRN ORDER FOR EXTERNAL CATHETER FOR COCCYX WOUND HEALING DUE TO CHRONIC INCONTINENCE
--- NOTE | 2019-01-27 19:35 | NUR ---
Awakened and HS meds all reviewed and given 1-2 at a time and takes without problems. Declines snack and HS care at this time. Denies pain.
--- NOTE | 2019-01-27 22:30 | NUR ---
Incontinent of urine and STICKER ON changes. Nurse will apply external cath once available.
--- NOTE | 2019-01-28 01:00 | NUR ---
Patient incontinent of urine and changed by LIVING NURSE. Cleansed margot-area with bath wipe then tip of penis cleansed with alcohol wipe, prep pad then external catheter placed without problems.
--- NOTE | 2019-01-28 02:47 | NUR ---
Patient rests with eyes closed. Respirations with ease.
[2019-01-28 04:38] VITALS: BP 160/68; PULSE 56; TEMP 97.9
--- NOTE | 2019-01-28 05:30 | NUR ---
PATIENT AWAKENED FOR MED. DENIES PAIN. REPOSITIONED. EXTERNAL CATH PATENT AND PATIENT CONTINENT OF URINE AT THIS TIME.
--- NOTE | 2019-01-28 11:06 | NUR ---
Patient is currently with group therapy at this time. When this nurse saw patient first thing this morning he had told this nurse that he had pulled his external catheter off. This nurse educated patient on the need to keep the catheter on to prevent any wetness to his coccyx wound area. Patient voiced understanding, but did not want it on when going downstairs for therapy this morning. This nurse left it off per patient request. Patient had an incontinent stool out of brief and onto his clothing, bed and blankets. Patient was cleaned up and assisted patient with putting his clothes on for the day. Patient was able to put one arm through his long sleeve shirt and to put it over his head, but staff assisted with everything else. Patient in pleasent mood this AM. Will continue to monitor.
--- NOTE | 2019-01-28 12:28 | NUR ---
Patient sleeping at this time, call light in reach and bed alarm is on. Patient wanted to sleep before eating his lunch. Lunch is currently being held until he wakes up.
--- NOTE | 2019-01-28 12:56 | NUR ---
Patient was a one assist with sit to stand to his bed by this nurse. Patient is currently dry at this time. He is watching TV, bed alarm is on and call light in reach.
[2019-01-28 17:05] VITALS: BP 125/65; PULSE 57; TEMP 97.6
--- NOTE | 2019-01-28 20:00 | NUR ---
HS meds all reviewed and taken 1-3 at a time. Does couph following swallowing of meds briefly. Denies pain. Continent and external cath reviewed and applied as directed and to dependent drainage. Patient repositions self up in bed after nurse lowers HOB. Refuses SCD's. RUE elevated on pillow and heels floated.
--- NOTE | 2019-01-28 22:51 | NUR ---
Patient rests with eyes closed. Respirations with ease.
--- NOTE | 2019-01-29 03:00 | NUR ---
Patient rests with eyes closed. Respirations with ease.
[2019-01-29 04:59] VITALS: BP 151/61; PULSE 57; TEMP 98.6
--- NOTE | 2019-01-29 10:10 | NUR ---
Patient was tearful and asked this nurse to help him call his . Following his conversation with his this nurse approached patient and he had red eyes. This nurse asked again if he needed any thing he said that he was okay. Will continue to monitor.
--- NOTE | 2019-01-29 14:13 | NUR ---
Patient has no other episodes of tearfulness today. He requested a shower so staff assisted him with this. Patient currently resting in his recliner sleeping, call light in reach, alarm on and legs elevated. Denies pain this shift.
--- NOTE | 2019-01-29 15:18 | NUR ---
Patient's is visiting at this time.
[2019-01-29 17:01] VITALS: BP 130/58; PULSE 55; TEMP 97.6
--- NOTE | 2019-01-29 19:25 | NUR ---
Pt. laying in bed at this time. Pt. is A&OX3, assessment complete. Pt. denies pain. Evening meds given per pt. request to have them now. Pt. denies further needs, call light within reach.
[2019-01-30 03:45] VITALS: BP 156/66; PULSE 56; TEMP 98.3
--- NOTE | 2019-01-30 08:15 | NUR ---
REPORT RECEIVED FROM NIGHT NURSE. PATIENT DENIES PAIN WHEN ASKED. RESTING IN BED WITH NO REQUESTS OR CONCERNS REPORTS.
--- NOTE | 2019-01-30 10:04 | NUR ---
Report from RAVEN Hebert. RAVEN Blount in training to provide total pt care today. Pt called for assist with hygiene, set up for oral cares on tray, now asked to shave, instructed pt that OT will assist, Alma aware. Pt denied pain. Bent coughing on some food this morning during breakfast.
[2019-01-30 16:48] VITALS: BP 137/64; PULSE 55; TEMP 98.2
--- NOTE | 2019-01-30 18:00 | NUR ---
PATIENT CONTINUES WITH USE OF LIFT WITH X2 STAFF ASSIST WITH BED TO CHAIR AND BACK TO BED FROM CHAIR TRANSFERS. DENIED NEED FOR PAIN MEDS WHEN ASKED THIS SHIFT. NO STOOLS OBSERVED NOR REPORTED BY STAFF. EXTERNAL CATHETER REMAINS INTACT THIS SHIFT, DRAINING CLEAR YELLOW URINE. PATIENT PERFORMING PASSIVE RANGE OF MOTION TO RIGHT HAND PER SELF. CONTINUES TO HAVE SPLIT SKIN WOUND TO COCCYX AREA, WITH APPLICATION OF DESITIN ORDERED. DENIES DIZZINESS OR NUMBNESS WHEN ASKED TO EXTREMITIES, REPORTS HAS SENSATION TO TOUCH TO RIGHT UPPER EXTREMITY.
--- NOTE | 2019-01-30 19:40 | NUR ---
Report received from RAVEN Blount.
[2019-01-31 05:28] VITALS: BP 157/60; PULSE 65; TEMP 98.3
--- NOTE | 2019-01-31 05:37 | NUR ---
Patient rested well throughout the night. External catheter present to assist with healing of coccyx wound. Repositioning completed by staff. Patient requested around 0515 that he get up for the day. Patient assisted by staff and sit to stand lift to the recliner. Patient denies any pain. Denies any further needs. Will continue to monitor.
--- NOTE | 2019-01-31 08:00 | NUR ---
RECEIVED FROM TELEPHONER NURSE. PATIENT UP IN CHAIR, EATING SET UP BREAKFAST TRAY WITH NO COMPLAINTS OR NEEDS CURRENTLY. DENIES COMPLAINTS OF PAIN WHEN ASKED. CONTINUES WITH RIGHT UPPER ARM WEAKNESS, REPORTS SENSATIONS WITHS TACTILE TOUCH TO RIGHT HANDS, DIANNA HAND SEAMLESS TUBE ROLLER UNEQUAL DUE ABSENT TRIAL CONSULTANT TO RIGHT HAND AND RIGHT LOWER LEG WEAKNESS. DENIES DIZZINESS OR NUMBNESS TO EXTREMITIES CURRENTLY.
--- NOTE | 2019-01-31 12:30 | NUR ---
PATIENT RESTING UP IN CHAIR WITH EYES CLOSED AFTER LUNCH
--- NOTE | 2019-01-31 13:12 | NUR ---
Visited w/ pt. He stated he has been doing okay. Reviewed the plan to go back to [facility]. He confirmed that is what they want to do. Informed him that SW would follow up w/ [facility]. Pt did not have any questions/concerns at this time.
[2019-01-31 16:19] VITALS: BP 121/54; PULSE 56; TEMP 97.8
--- NOTE | 2019-01-31 17:37 | NUR ---
CONTINUES TO SIT UP IN CHAIR, EATING SUPPER MEAL. HAS NO COMPLAINTS CURRENTLY.
--- NOTE | 2019-01-31 18:50 | NUR ---
Patient up in chair, day aid wanting to shave patient prior to being put back in bed. Patient has yellow socks on, call light within reach. Bedside report given to night monitor nurse with care resumed.
--- NOTE | 2019-01-31 20:30 | NUR ---
HS meds all reviewed and given. Alert and oriented. Sits up in recliner. Denies pain. Declines snack and HS care. Up x 2 assist via sit to stand lift with good effort. Continent. Desitin applied to inner buttucks/improved and less red. External catheter intact and patent to dependent drainage.
--- NOTE | 2019-02-01 01:21 | NUR ---
Patient has been resting with eyes closed. Respirations with ease.
[2019-02-01 05:20] VITALS: BP 144/69; PULSE 58; TEMP 97.7
--- NOTE | 2019-02-01 10:01 | NUR ---
Patient attending therapies this morning. Patient was a sit to stand with transfers this morning. Total assist with wiping, brief change and dressing lower body this morning. Denies pain. Denied questions. Will continue to monitor.
--- NOTE | 2019-02-01 15:20 | NUR ---
Visited w/ pt & his . Reviewed the Team Conference note w/ them, which they stated they understood. Informed them of d/c still being for tomorrow, 02/02/19, back to [facility]. Told that we will contact her tomorrow morning regarding transportation time w/ [facility].
[2019-02-01 17:30] VITALS: BP 117/60; PULSE 58; TEMP 98.4
--- NOTE | 2019-02-01 19:55 | NUR ---
Patient will be going to [facility] tomorrow. Patient is aware of this. Dr. Dsouza's office was updated and he was put on thier schedule to be seen. Call placed to Dr. Thompson's office to set up a f/u appointment in 6 weeks and this nurse left a message. Awaiting a return call. Patient's external catheter is still in place at this time. He has had good urine output. Patient right elbow has a small abrasion from when working with therapy today. Mepilex was placed to area. Will continue to monitor. Reported off to night nurse.
--- NOTE | 2019-02-01 21:30 | NUR ---
Patient awakened and HS meds all reviewed and given. Denies pain. Declines snack. Encouraged fluids due to concentrated kurtis urine in external torres bag/and takes several sips of water. Continent. Returns to resting with eyes closed.
[2019-02-02 03:18] VITALS: BP 136/59; PULSE 57; TEMP 98.2
--- NOTE | 2019-02-02 03:21 | NUR ---
Patient awakened. Reports "slept alot". External catheter emptied.
--- NOTE | 2019-02-02 10:35 | NUR ---
Patient resting in his recliner at this time, call light in reach, alarm is on and watching TV. Patient had a large incontinent bowel movement this morning outside his brief and on his clothes and bed. Patient was cleaned up and bed remade. Denies pain at this time. He is awaiting for discharge to [facility] later this afternoon.
--- NOTE | 2019-02-02 10:40 | NUR ---
Follow-up visit; Patient thanked Sort Operations Supervisor for looking in on him and wishing him a "Good day." Patient appeared pleased to be thought of.
[2019-02-02] MEDS ORDERED: NORVASC 10MG10 MG PO (12:59)
[2019-02-02] MEDS ORDERED: LASIX 20MG TABL20 MG PO (13:00)
[2019-02-02] MEDS ORDERED: Desenex/Lotrimin AF TP (13:01)
[2019-02-02] MEDS ORDERED: DESITIN MAXIMUM S40% TP (13:01)
--- NOTE | 2019-02-02 14:07 | NUR ---
Called RAVEN Maher at [facility] and gave report. She voiced understanding. Faxed Discharge summary to Rylie at [facility] per order of Marii.
--- NOTE | 2019-02-02 14:50 | NUR ---
Patient Health Summary, Discharge Summary, and Home Meds printed and given to [facility] Route Sales Person to give to [facility] nurse. Reviewed F/U appointments needed for PCP and Neurology with RAVEN Maher @ [facility]. Belongings gathered by FARZAD/Romie including bilateral hearing aids, glasses, clothes, shoes and CPAP machine. Patient transported via wheelchair by [facility] wedding transportation driver and seatbelted for ride home to SNF. Patient and denied questions.
--- NOTE | 2019-02-03 12:08 | NUR ---
Discharge QIM scores were reviewed by the team on 02/02/19. Code of 2 chosen for putting on/taking off footwear was determined by team discussion to be the most usual performance for this patient during the assessment period. Code of 2 chosen for rolling left to right was determined by team discussion to be the most usual performance for this patient during the assessment period. Code of 1 chosen for sit to stand was determined by team discussion to be the most usual performance for this patient during the assessment period.--Pastora Granado, PD
== END 2019-02-02 14:40 | DRG 57 ==
PROVIDERS: ADMIT Internal Medicine
DX: I69.351 Hemiplegia and hemiparesis following cerebral infarction affecting right dominant side (principal); I69.320 Aphasia following cerebral infarction; I69.322 Dysarthria following cerebral infarction; I10 Essential (primary) hypertension; E78.5 Hyperlipidemia, unspecified; G47.33 Obstructive sleep apnea (adult) (pediatric); R13.10 Dysphagia, unspecified; N40.0 Benign prostatic hyperplasia without lower urinary tract symptoms; R19.7 Diarrhea, unspecified; F32.9 Major depressive disorder, single episode, unspecified; Z79.01 Long term (current) use of anticoagulants; Z79.82 Long term (current) use of aspirin; Z87.891 Personal history of nicotine dependence; Z86.711 Personal history of pulmonary embolism; Z96.642 Presence of left artificial hip joint
CPT/HCPCS: 99222-AI; 99232-AI; 99239

== ENCOUNTER → 2019-01-09 | Outpatient (CLI) | payer MEDICARE, BC ==
[~2019-01-09] MED LIST changes: +ASPIRIN 81M81 MG/TA2 PO; +DEBROX OT; +DULCOLAX S10 MG/SUPP RC; +IMODIUM 2MG CAPS2 MG PO; +LIPITOR 80MG80 MG PO; +LOMOTIL 0.025 M1 TAB PO; +MELATONIN5 M1 SL; +MILK OF MA400 MG/52 PO; +MYLANTA 150 ML150 M1 PO; +SINEMET 25/101 UDTAB PO; +TYLENOL 325MG325 MG PO; +TYLENOL SU650 MG/SUP RC; +[UNRECOGNIZED DRUG - OTHER] NS
[2019-01-09 11:34] LABS: BASO # 0.1 (0.0-0.2); BASO % 0.4 % (0.0-2.0); EOS # 0.1 (0.0-0.7); EOS % 0.8 % (0-4.0); GRAN # 10.9 (1.4-6.5); GRAN % 82.9 % (42.2-75.2); HEMOGLOBIN 14.2 g/dl (13.5-18.0); LYMPH # 1.3 (1.2-3.4); LYMPH % 9.8 % (20.0-51.0); MEAN CELL VOLUME 98 fl (80.0-100.0); MEAN CORPUSCULAR HEMOGLOBIN 32 pg (27.0-31.0); MEAN CORPUSCULAR HGB CONC 32 g/dl (33.0-37.0); MEAN PLATELET VOLUME 9.7 fl (7.4-10.4); MONO # 0.7 (0.1-0.6); MONO % 5.5 % (1.7-9.3); PLATELET COUNT 367 K/mm3 (130-400); RED BLOOD COUNT 4.47 M/mm3 (4.20-5.60); REDCELL DISTRIBUTION WIDTH-CV 12.5 % (11.5-14.5)
[2019-01-09 11:41] LABS: ALBUMIN 3.8 gm/dL (3.5-5.0); BILIRUBIN,TOTAL 0.6 mg/dL (0.0-1.0); CALCIUM 8.9 mg/dL (8.4-10.2); CREATININE, serum 1.01 (0.66-1.25); POTASSIUM 3.9 mmol/L (3.4-5.0); TOTAL PROTEIN 6.6 gm/dL (6.4-8.2)
== END ==
LOC: ZCOL.LAB 10:41
PROVIDERS: Internal Medicine
DX: N18.3 Chronic kidney disease, stage 3 (moderate) (principal); I69.351 Hemiplegia and hemiparesis following cerebral infarction affecting right dominant side